=== PATIENT | female | born 1950 | race Caucasian/White ===

== ENCOUNTER → 2017-11-04 | Outpatient (CLI) | payer BC, MEDICARE ==
--- NOTE | 2017-11-05 09:42 | MM ---
Reason for exam: screening (asymptomatic). Last mammogram was performed 1 year and 1 month ago. History: Patient is postmenopausal and has history of other cancer at age 44. Family history of breast cancer in mother at age 74. Physical Findings: A clinical breast exam by your physician is recommended on an annual basis and results should be correlated with mammographic findings. MG 3D Screening Mammo W/Cad Bilateral CC and MLO view(s) were taken. Prior study comparison: October 08, 2016, bilateral MG 3d screening mammo w/cad. July 25, 2015, bilateral MG screening mammo w CAD. The breast tissue is heterogeneously dense. This may lower the sensitivity of mammography. Finding: There are round, regional, fine calcifications in the lower inner quadrant, middle position of the left breast 4cm from the nipple in a region of increased density. New finding since October 08, 2016 and July 25, 2015. ASSESSMENT: Incomplete: need additional imaging evaluation, BI-RAD 0 RECOMMENDATION: Special view mammogram of the left breast. [facility] will attempt to contact patient to return for supplemental views.
== END | disposition home or self-care (01) ==
LOC: RADMAMWWP 14:28
PROVIDERS: ATTEND Obstetrics & Gynecology
DX: Z12.31 Encounter for screening mammogram for malignant neoplasm of breast (principal)
CPT/HCPCS: 77063; 77067

== ENCOUNTER → 2017-11-06 | Outpatient (CLI) | payer MEDICARE ==
--- NOTE | 2017-11-06 09:50 | MM ---
Reason for exam: additional evaluation requested from abnormal screening. Last mammogram was performed less than 1 month ago. History: Patient is postmenopausal and has history of other cancer at age 44. Family history of breast cancer in mother at age 74. Took progesterone for 2 years beginning at age 44. Physical Findings: Nurse did not find any significant physical abnormalities on exam. MG 3D Work Up W/Cad LT CC with magnification, MLO with magnification, and LM view(s) were taken of the left breast. Prior study comparison: November 04, 2017, bilateral MG 3d screening mammo w/cad. October 08, 2016, bilateral MG 3d screening mammo w/cad. Finding: There are new intermediate concern, suspicious heterogeneous grouped/clustered calcifications in the lower inner quadrant, anterior position of the left breast, 4cm from the nipple. New finding since October 08, 2016. These results were verbally communicated with the patient and result sheet given to the patient on 11/06/17. ASSESSMENT: Suspicious, BI-RAD 4 RECOMMENDATION: Surgical consultation and stereotactic core biopsy of the left breast. Called Dr. Casiano with mammographic findings and has scheduled an appointment for the patient for 11/24/17 at 9:[address] Georges. Biopsy scheduled for 11/18/17 at 8:00. PRELIMINARY REPORT CALLED AND FAXED TO DR. GEORGES ON 11/06/17.
== END | disposition home or self-care (01) ==
LOC: RADMAMWWP 08:17
PROVIDERS: ATTEND Obstetrics & Gynecology
DX: R92.8 Other abnormal and inconclusive findings on diagnostic imaging of breast (principal)
CPT/HCPCS: 77065; G0279

== ENCOUNTER → 2017-11-18 | Day surgery (SDC) | payer MEDICARE ==
[2017-11-18 07:23] VITALS: RESP 16; BMI 23.8
[2017-11-18 08:49] VITALS: BP 140/66; PULSE 76; TEMP 97.8
--- NOTE | 2017-11-18 09:59 | MM ---
Stereotactic Mammotome core biopsy left breast. HISTORY: Micro calcifications left breast The microcalcifications in question within the left breast were targeted by the undersigned. Procedure was performed by the undersigned. Informed consent was obtained and all of the patients questions were answered. The standard sterile technique was utilized and appropriate local anesthesia was obtained with 1% lidocaine. Mammotome probe was advanced and multiple core samples were obtained and sent to pathology for interpretation. Microclip marker was deployed at the site of biopsy. Post procedural mammogram demonstrates appropriate deployment of radiopaque clip marker. The patient tolerated the procedure well and left the department in stable condition. Pathology results are pending. IMPRESSION: Successful stereotactic core biopsy left breast with pathology results pending. Pathology Results: High Risk BREAST, LEFT, SITE A, STEREOTACTIC CORE BIOPSY: SMALL INTRADUCTAL PAPILLOMA. FIBROCYSTIC CHANGE (STROMAL FIBROSIS, CYST FORMATION, APOCRINE METAPLASIA, ADENOSIS AND DUCT HYPERPLASIA). CALCIFICATIONS IDENTIFIED, PENDING ADDITIONAL SECTIONS. ADDENDUM REPORT BREAST, LEFT, SITE A, STEREOTACTIC CORE BIOPSY: ATYPICAL DUCTAL HYPERPALSIA. INTRADUCTAL PAPILLOMA. FIBROCYSTIC CHANGE (STROMAL FIBROSIS, CYST FORMATION, APOCRINE METAPLASIA, ADENOSIS AND DUCT HYPERPLASIA). CALCIFICATIONS IDENTIFIED. Recommendation Surgical consult of the left breast. RAFAL
== END ==
LOC: RADMAMWWP 07:04
PROVIDERS: ATTEND Surgery
DX: D24.2 Benign neoplasm of left breast (principal); N60.32 Fibrosclerosis of left breast; N60.02 Solitary cyst of left breast; N60.82 Other benign mammary dysplasias of left breast; N60.22 Fibroadenosis of left breast; R92.1 Mammographic calcification found on diagnostic imaging of breast; N60.92 Unspecified benign mammary dysplasia of left breast
CPT/HCPCS: 88305; 19081; A4648; J2001

== ENCOUNTER 2018-01-27 07:15 | Day surgery (SDC) | payer MEDICARE ==
[2018-01-22 12:27] VITALS: BMI 23.8
[~2018-01-27 07:15] MED LIST: ALPRAZolam 0.25 MG TAB PO STA; DEXAMETHASONE SOD PHOSPHATE 10 MG/ML 1 ML VIAL IV ONE; HEPARIN SODIUM,PORCINE 5,000 UNIT/ML 1 ML VIAL SQ ONE; LACTATED RINGERS 1,000 ML IV SCH; LIDOCAINE 1% 20 ML VIAL (10MG/ML) FOR IV START INTRADERMA PRN; MIDAZOLAM 2 MG/2 ML VIAL IV PRN; MORPHINE SULFATE 2 MG/ML SYRINGE IV PRN; ONDANSETRON 4 MG/2 ML VIAL IVP ONE; Pre Op ABX Message 1 EACH MISC MISCELLANE ONE; SCOPOLAMINE 1.5MG/72HR PATCH TRANSDERM ONE
[2018-01-27 07:48] LABS: Glucose,Whole Blood 159 mg/dL (75-99)
[2018-01-27] MEDS ORDERED: SODIUM BICARB 4% 5 ML VIAL (0.48 MEQ/ML) MISCELLANE ONE (08:49)
[2018-01-27] MEDS ORDERED: LIDOCAINE 1% INJ 10MG/ML (20 ML MDV) SQ ONE (08:49)
[2018-01-27] MEDS ORDERED: HEPARIN SODIUM,PORCINE 5,000 UNIT/ML 1 ML VIAL SQ ONE (09:52)
[2018-01-27] MEDS ORDERED: DEXAMETHASONE SOD PHOS (MDV) 100 MG/10 ML VIAL ONE (09:57)
[2018-01-27] MEDS ORDERED: MIDAZOLAM 2 MG/2 ML VIAL ONE (09:57)
[2018-01-27] MEDS ORDERED: LIDOCAINE 1% INJ 10MG/ML (20 ML MDV) ONE (09:57)
[2018-01-27] MEDS ORDERED: SUCCINYLCHOLINE CHLORIDE 100 MG/5 ML SYR IV ONE (09:57)
[2018-01-27] MEDS ORDERED: fentaNYL (PF) 50 MCG/ML 2 ML AMP ONE (09:57)
[2018-01-27] MEDS ORDERED: PROPOFOL 10 MG/ML 20 ML VIAL IV ONE (09:57)
[2018-01-27] MEDS ORDERED: LIDOCAINE 1% INJ 10MG/ML (10 ML MDV) SQ ONE ×3 (10:26→10:54)
[2018-01-27] MEDS ORDERED: LACTATED RINGERS 1,000 ML IV ONE (10:27)
--- NOTE | 2018-01-27 11:01 | P.OP ---
Date of Procedure: 01/27/18 Preoperative Diagnosis: Left breast biopsy with atypical hyperplasia, intraductal papilloma Postoperative Diagnosis: Same Procedure(s) Performed: Left breast needle localization diet biopsy, placement of titanium clips Anesthesia: JOCELINEA Surgeon: Leydi Humphrey Estimated Blood Loss (ml): 15 IV fluids (ml): 400 Pathology: other (Breast tissue) Condition: stable Disposition: PACU Indications for Procedure: Biopsy atypical hyperplasia and intraductal papilloma Operative Findings: Dense breast tissue Description of Procedure: Patient was taken to the operating room and following induction of anesthesia the left breast was prepped and draped in a sterile fashion. Circumareolar incision was made and carried down to the hook of the needle. Surrounding tissue was excised. Following this the specimen was painted for orientation and sent for radiographic evaluation. The clip was noted to be in the specimen. After we were assured that hemostasis was attained the deep tissues were closed using a 3-0 Vicryl suture. Titanium clips were placed to suraj the area of the biopsy cavity. The skin was then closed using a 4-0 Monocryl. The patient tolerated the procedure in stable condition. Specimen was sent to pathology.
--- NOTE | 2018-01-27 11:02 | P.DS ---
Providers Attending physician: Leydi Humphrey Primary care physician: Stated None Plan - Discharge Summary New Discharge Prescriptions: No Action Multivitamin/Iron/Folic Acid [Centrum Complete Multivit Tab] 1 each PO DAILY Fish Oil/Dha/Epa [Fish Oil 1,200 mg Fish Oil] 600 mg PO DAILY Calcium Carbonate/Vitamin D3 [Calcium 600 + Vit D Tablet] 1 each PO DAILY metFORMIN HCL [Glucophage] 500 mg PO BID Metoprolol Succinate [Toprol XL] 25 mg PO BID Levothyroxine Sodium [Synthroid] 25 mcg PO DAILY Fenofibrate Nanocrystallized [Tricor] 145 mg PO DAILY Aspirin 81 mg PO DAILY Vits A,C,E/Lutein/Minerals [Ocuvite with Lutein Tablet] 1 each PO DAILY Lisinopril [Zestril] 2.5 mg PO DAILY Discharge Medication List Aspirin 81 mg PO DAILY 08/01/14 [History] Calcium Carbonate/Vitamin D3 [Calcium 600 + Vit D Tablet] 1 each PO DAILY [History] Fenofibrate Nanocrystallized [Tricor] 145 mg PO DAILY 08/01/14 [History] Fish Oil/Dha/Epa [Fish Oil 1,200 mg Fish Oil] 600 mg PO DAILY 08/01/14 [History] Levothyroxine Sodium [Synthroid] 25 mcg PO DAILY 08/01/14 [History] Metoprolol Succinate [Toprol XL] 25 mg PO BID 08/01/14 [History] Multivitamin/Iron/Folic Acid [Centrum Complete Multivit Tab] 1 each PO DAILY [History] Vits A,C,E/Lutein/Minerals [Ocuvite with Lutein Tablet] 1 each PO DAILY [History] metFORMIN HCL [Glucophage] 500 mg PO BID 08/01/14 [History] Lisinopril [Zestril] 2.5 mg PO DAILY 11/10/17 [History] Follow up Appointment(s)/Referral(s): Leydi Humphrey MD [STAFF PHYSICIAN] - 1 Week Activity/Diet/Wound Care/Special Instructions: Drive today Surgical bra at all times Patient may shower after 48 hours Discharge Disposition: HOME SELF-CARE
[2018-01-27 11:20] VITALS: TEMP 97
[2018-01-27 12:36] LABS: Glucose,Whole Blood 154 mg/dL (75-99)
[2018-01-27 13:22] VITALS: RESP 16
[2018-01-27 13:23] VITALS: BP 154/79; PULSE 75
--- NOTE | 2018-01-27 15:21 | MM ---
EXAMINATION TYPE: MG pre op needle loc LT, MG surgical specimen LT DATE OF EXAM: 01/27/2018 COMPARISON: Mammogram 11/18/2017 CLINICAL HISTORY: Papilloma, abnormal mammogram TECHNIQUE: Needle localization with wire placement and surgical excision of area of concern in the left breast. FINDINGS: The procedure of needle localization with wire placement and than surgical excision was explained to the patient. Benefits, alternatives, and risks were discussed. An informed consent was then obtained. The shortest pathway for procedure was chosen. Shortest pathway was mediolateral approach. The overlying skin was prepped and draped in usual sterile fashion. Lidocaine buffered with bicarbonate was used as anesthetic into the skin and subcutaneous tissue up to the level of area of concern. A 5 cm needle was used. It was placed via a mediolateral approach under mammographic guidance. Subsequent 90 degrees mammogram show the needle to be in satisfactory position relative to the targeted area. At this point, wire was placed and the needle was withdrawn. The wire was fixed to patient's skin. Images were marked for surgeon. The patient tolerated the procedure well without any immediate complication. The patient was kept in the radiology department for short stay after the procedure and then taken to surgery for surgical excision. Targeted clip and wire are identified in specimen mammogram. The patient was kept in hospital for short stay after the procedure and then discharged home in stable condition. IMPRESSION: Successful, uncomplicated needle localization with wire placement and surgical excision of marker in the left breast, full pathology results to follow. 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 CANCER EXTENDS TO WITHIN 1 MM OF THE INKED ANTERIOR AND INFERIOR MARGINS ( CLOSEST TO BLUE ANTERIOR INK) BUT DOES NOT CONTACT MARGIN. ADJACENT BREAST TISSUE: PRIOR BIOPSY CHANGES WITH AREAS OF DCIS. Recommendation Surgical consult of the left breast. RAFAL
== END 2018-01-27 13:39 | disposition home or self-care (01) ==
LOC: OR 07:15
PROVIDERS: ATTEND Surgery
DX: D05.12 Intraductal carcinoma in situ of left breast (principal); D24.2 Benign neoplasm of left breast; N60.92 Unspecified benign mammary dysplasia of left breast; Z80.3 Family history of malignant neoplasm of breast; I10 Essential (primary) hypertension; M19.90 Unspecified osteoarthritis, unspecified site; E78.5 Hyperlipidemia, unspecified; E07.9 Disorder of thyroid, unspecified; K21.9 Gastro-esophageal reflux disease without esophagitis; Z79.84 Long term (current) use of oral hypoglycemic drugs; Z79.82 Long term (current) use of aspirin; Z79.899 Other long term (current) drug therapy
CPT/HCPCS: 88307; 76098; 19281; 19301; J2250; J1644; J1100 ×2; J2405; J2001 ×2; J3010; J0330; J2704

== ENCOUNTER 2018-03-10 07:36 | Day surgery (SDC) | payer MEDICARE ==
[2018-03-04 15:43] VITALS: BMI 23.8
[~2018-03-10 07:36] MED LIST changes: -ALPRAZolam 0.25 MG TAB PO STA; -LIDOCAINE 1% 20 ML VIAL (10MG/ML) FOR IV START INTRADERMA PRN; -MORPHINE SULFATE 2 MG/ML SYRINGE IV PRN; -ONDANSETRON 4 MG/2 ML VIAL IVP ONE; +ONDANSETRON ODT 4 MG TAB PO ONE; -SCOPOLAMINE 1.5MG/72HR PATCH TRANSDERM ONE; +fentaNYL (PF) 50 MCG/ML 2 ML AMP IV PRN
[2018-03-10 08:26] LABS: Glucose,Whole Blood 145 mg/dL (75-99)
[2018-03-10] MEDS ORDERED: LACTATED RINGERS 1,000 ML IV ONE ×2 (08:26→14:19)
[2018-03-10] MEDS ORDERED: ALPRAZolam 0.5 MG TAB PO ONE (08:27)
[2018-03-10] MEDS ORDERED: ONDANSETRON 4 MG/2 ML VIAL IVP ONE ×2 (08:27→13:46)
--- NOTE | 2018-03-10 10:59 | NM ---
EXAMINATION TYPE: NM sentinel node injection DATE OF EXAM: 03/10/2018 COMPARISON: NONE HISTORY: Left breast carcinoma TECHNIQUE AND FINDINGS: The procedure of sentinel lymph node injection was explained to the patient. The benefits, alternatives, and risks were discussed. An informed consent was then obtained. Overlying skin is cleaned with sterile alcohol. Following this, 579 uCi [id number] Tilmanocept was inject ed into the left periareolar upper outer quadrant. The patient tolerated the procedure well without any immediate complication. The patient was kept in the radiology department for short stay after the procedure and then taken to surgery for surgical p rocedure what is presumed intraoperative gamma probe will be used for sentinel lymph node detection. IMPRESSION: Left breast radiotracer injection for sentinel node localization as above.
[2018-03-10] MEDS ORDERED: HEPARIN SODIUM,PORCINE 5,000 UNIT/ML 1 ML VIAL SQ ONE (11:30)
[2018-03-10] MEDS ORDERED: MIDAZOLAM 2 MG/2 ML VIAL ONE (11:57)
[2018-03-10] MEDS ORDERED: LIDOCAINE 1% INJ 10MG/ML (20 ML MDV) ONE (11:57)
[2018-03-10] MEDS ORDERED: fentaNYL (PF) 50 MCG/ML 2 ML AMP ONE (11:57)
[2018-03-10] MEDS ORDERED: SUCCINYLCHOLINE CHLORIDE VIAL 200 MG/10 ML VIAL IV ONE (11:57)
[2018-03-10] MEDS ORDERED: DEXAMETHASONE SOD PHOS (MDV) 100 MG/10 ML VIAL ONE (11:57)
[2018-03-10] MEDS ORDERED: PROPOFOL 10 MG/ML 20 ML VIAL IV ONE (11:57)
[2018-03-10] MEDS ORDERED: PHENYLEPHRINE-0.9% NACL SYG 1 MG/10 ML SYRINGE ONE (11:57)
[2018-03-10] MEDS ORDERED: METHYLENE BLUE 10 MG/ML (10 ML VIAL) INJ ONE (12:15)
[2018-03-10] MEDS ORDERED: LIDOCAINE 1% INJ 10MG/ML (20 ML MDV) SQ ONE ×2 (12:25)
--- NOTE | 2018-03-10 13:21 | P.OP ---
Date of Procedure: 03/10/18 Preoperative Diagnosis: Left breast cancer patient for sentinel node biopsy Postoperative Diagnosis: Same Procedure(s) Performed: [place] node mapping, sentinel node biopsy Anesthesia: JOCELINEA Surgeon: Leydi Humphrey Estimated Blood Loss (ml): 2 IV fluids (ml): 800 Pathology: other ([place] nodes 4) Condition: stable Disposition: PACU Indications for Procedure: Left breast invasive cancer patient for sentinel node biopsy Operative Findings: 4 sentinel nodes identified and removed frozen section negative for cancer. Description of Procedure: Patient is a 67-year-old white female who underwent a biopsy of the left breast which was positive for invasive ductal carcinoma. Margins were felt to be sufficient and the patient was recommended to undergo sentinel node biopsy. Patient was taken to the operating room and following induction of general anesthesia the left axilla was prepped and draped in a sterile fashion. The neoprobe was used to identify the area of greatest activity in the axilla and an incision was made just under the hair bearing area of the axilla. This was carried through the skin and subcutaneous tissue. Dissection was carried down into the axillary contents were first sentinel node was identified. This was excised and the 10 second count was 21,217. Further interrogation of the axilla revealed 2 additional sentinel nodes. Dissection was carried into the axillary tissue the nerve along the latissimus dorsi was identified and carefully preserved. The second sentinel node was removed with a count of 1508 , the third node was removed with a count of 11,019, and the fourth node was removed with a count of 15,839. All of this was soft and appeared to be fatty in nature. Frozen section evaluation revealed that there was no dense of cancer nodes. The patient has a history of lymphoma and a portion of this tissue was sent for flow cytometry. Background count of 10 seconds was 48. Following this after assured that hemostasis was attained the wound was well irrigated. The deep tissues were closed using a 3-0 Vicryl suture. This was done following placement of a ERIKA drain. The ERIKA drain was secured with a nylon suture. The skin was secured with a 4-0 Monocryl. Patient tolerated procedure in stable condition. All instrument and sponge counts were correct at the end of the case.
--- NOTE | 2018-03-10 13:23 | P.DS ---
Providers Attending physician: Leydi Humphrey Primary care physician: Darrell Cain Plan - Discharge Summary New Discharge Prescriptions: No Action Multivitamin/Iron/Folic Acid [Centrum Complete Multivit Tab] 1 each PO DAILY Fish Oil/Dha/Epa [Fish Oil 1,200 mg Fish Oil] 600 mg PO DAILY Calcium Carbonate/Vitamin D3 [Calcium 600 + Vit D Tablet] 1 each PO DAILY metFORMIN HCL [Glucophage] 500 mg PO BID Metoprolol Succinate [Toprol XL] 25 mg PO BID Levothyroxine Sodium [Synthroid] 25 mcg PO DAILY Fenofibrate Nanocrystallized [Tricor] 145 mg PO DAILY Aspirin 81 mg PO DAILY Vits A,C,E/Lutein/Minerals [Ocuvite with Lutein Tablet] 1 each PO DAILY Lisinopril [Zestril] 2.5 mg PO DAILY Discharge Medication List Aspirin 81 mg PO DAILY 08/01/14 [History] Calcium Carbonate/Vitamin D3 [Calcium 600 + Vit D Tablet] 1 each PO DAILY [History] Fenofibrate Nanocrystallized [Tricor] 145 mg PO DAILY 08/01/14 [History] Fish Oil/Dha/Epa [Fish Oil 1,200 mg Fish Oil] 600 mg PO DAILY 08/01/14 [History] Levothyroxine Sodium [Synthroid] 25 mcg PO DAILY 08/01/14 [History] Metoprolol Succinate [Toprol XL] 25 mg PO BID 08/01/14 [History] Multivitamin/Iron/Folic Acid [Centrum Complete Multivit Tab] 1 each PO DAILY [History] Vits A,C,E/Lutein/Minerals [Ocuvite with Lutein Tablet] 1 each PO DAILY [History] metFORMIN HCL [Glucophage] 500 mg PO BID 08/01/14 [History] Lisinopril [Zestril] 2.5 mg PO DAILY 11/10/17 [History] Follow up Appointment(s)/Referral(s): Leydi Humphrey MD [STAFF PHYSICIAN] - 1 Week Activity/Diet/Wound Care/Special Instructions: Do not drive today Teaching drain care/ drainage and recorded contents twice a day and when necessary Patient may shower after 24 hours Discharge Disposition: HOME SELF-CARE
[2018-03-10 13:38] VITALS: TEMP 97.1
[2018-03-10] MEDS ORDERED: MORPHINE SULFATE 4 MG/ML SYRINGE IVP ONE ×2 (13:46→14:03)
[2018-03-10] MEDS ORDERED: LABETALOL 5 MG/ML VIAL MDV IVP ONE (14:06)
[2018-03-10 14:16] VITALS: RESP 18
[2018-03-10] MEDS ORDERED: HYDROcodone/APAP 7.5-325MG 1 EACH TAB PO ONE ×2 (15:00→15:01)
[2018-03-10 16:02] VITALS: BP 146/68; PULSE 89
== END 2018-03-10 16:36 | disposition home or self-care (01) ==
LOC: OR 07:36
PROVIDERS: ATTEND Surgery
DX: C50.912 Malignant neoplasm of unspecified site of left female breast (principal); E11.9 Type 2 diabetes mellitus without complications; I10 Essential (primary) hypertension; E78.5 Hyperlipidemia, unspecified; E07.9 Disorder of thyroid, unspecified; Z85.72 Personal history of non-Hodgkin lymphomas; Z79.890 Hormone replacement therapy; Z79.84 Long term (current) use of oral hypoglycemic drugs; Z79.82 Long term (current) use of aspirin; Z79.899 Other long term (current) drug therapy
CPT/HCPCS: 38792; 38525; A9520; J2250; J0330; J2270; J1644; J1100 ×2; J2405; J2001; Q9968; J3010; J2370; J2704; 88307; 88331; 88341; 88342

== ENCOUNTER → 2018-03-19 | Outpatient (CLI) | payer MEDICARE ==
[2018-03-19 11:22] VITALS: BP 131/75; PULSE 65; TEMP 98.4; BMI 24.3
== END | disposition home or self-care (01) ==
LOC: WWCWWP 11:10
PROVIDERS: ATTEND Surgery
DX: Z48.89 Encounter for other specified surgical aftercare (principal); Z53.9 Procedure and treatment not carried out, unspecified reason

== ENCOUNTER → 2018-03-19 | Outpatient (CLI) | payer MEDICARE ==
--- NOTE | 2018-03-19 11:42 | P.PN ---
Progress Note - Text Progress Note Date: 03/19/18 Patient presents for a postoperative appointment she is status post left breast sentinel node biopsy. She had undergone left breast biopsy for atypical hyperplasia prior and was noted to have an invasive ductal carcinoma and DCIS. The sentinel nodes were negative for cancer. The patient's incision is clean and dry. The patient's ERIKA drain is minimal output and serous. The ERIKA drain was removed. Impression/plan: 1. history of left breast cancer 2. Patient following with radiation oncology 3. Patient following with medical oncology 4. Patient will follow here in 3-4 months CC: Chacha Enrique Johnson
== END | disposition home or self-care (01) ==
LOC: WWCWWP 11:13
PROVIDERS: ATTEND Surgery
DX: N60.92 Unspecified benign mammary dysplasia of left breast (principal); Z53.9 Procedure and treatment not carried out, unspecified reason

== ENCOUNTER → 2018-06-02 | Outpatient (CLI) | payer MEDICARE ==
[2018-06-02 08:55] VITALS: BP 153/68; PULSE 66; TEMP 97.6; BMI 24.1
--- NOTE | 2018-06-02 09:55 | P.HPOB ---
History of Present Illness H&P Date: 06/02/18 Chief Complaint: Bleeding from vulvar area times 2 weeks. This is a 67 year old G3 PIII with an LMP of 1993. The patient had a history of possible lichen sclerosis by previous physical exam. She was not having problems with this until about 2 weeks ago. After washing the area, she noticed a small amount of blood. Upon inspection she felt that there was some bleeding from the vulvar area. She does not believe it was from the vagina. She has not been sexually active for more than one year. She has had slight pruritus in the vulvar area. She denies any significant pain and did not feel a tearing sensation when she 1st noticed the bleeding. Review of Systems Weight has been stable. She denies respiratory, cardiac and G.I. problems. She denies maltreatment or problems with falling. : she denies any significant problems with urinary leakage. Past Medical History Past Medical History: Cancer (Left breast status post lumpectomy and radiation therapy 2017.), Diabetes Mellitus, Hyperlipidemia, Hypertension, Thyroid Disorder (Hypothyroid) Additional Past Medical History / Comment(s): hodgkins lymphoma 1993, had 7 months of chemo. 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 History of Any Multi-Drug Resistant Organisms: None Reported Past Surgical History: Breast Surgery (left Lumpectomy 2018), Cholecystectomy, Tonsillectomy Additional Past Surgical History / Comment(s): d & c, colonoscopy, LEFT breast Lumpectomy. Past Anesthesia/Blood Transfusion Reactions: Postoperative Nausea & Vomiting ( PONV) Additional Past Anesthesia/Blood Transfusion Reaction / Comment(s): States has a letter that states "difficult intubation". Past Psychological History: No Psychological Hx Reported Smoking Status: Never smoker Past Alcohol Use History: Rare (1 per month) Past Drug Use History: None Reported Additional History: She has been since 1967 and is retired. - Past Family History Mother Family Medical History: Cancer (Breast) Sister(s) Family Medical History: Cancer (Uterine) Additional Family Medical History / Comment(s): Down syndrome Medications and Allergies Home Medications Medication Instructions Recorded Confirmed Type Aspirin 81 mg PO DAILY 08/01/14 06/02/18 History Calcium Carbonate/Vitamin D3 1 each PO DAILY 08/01/14 06/02/18 History [Calcium 600 + Vit D Tablet] Fenofibrate Nanocrystallized 145 mg PO DAILY 08/01/14 03/19/18 History [Tricor] Fish Oil/Dha/Epa [Fish Oil 1,200 600 mg PO DAILY 08/01/14 06/02/18 History mg Fish Oil] Levothyroxine Sodium [Synthroid] 25 mcg PO DAILY 08/01/14 06/02/18 History Metoprolol Succinate [Toprol XL] 25 mg PO BID 08/01/14 06/02/18 History Multivitamin/Iron/Folic Acid 1 each PO DAILY 08/01/14 06/02/18 History [Centrum Complete Multivit Tab] Vits A,C,E/Lutein/Minerals 1 each PO DAILY 08/01/14 06/02/18 History [Ocuvite with Lutein Tablet] metFORMIN HCL [Glucophage] 500 mg PO BID 08/01/14 06/02/18 History Lisinopril [Zestril] 2.5 mg PO DAILY 11/10/17 06/02/18 History Cranberry Fruit Extract [Cranberry] 500 mg PO 03/19/18 History Letrozole [Femara] mg PO HS 06/02/18 History Allergies Allergy/AdvReac Type Severity Reaction Status Date / Time No Known Allergies Allergy Verified 03/04/18 15:39 Exam Vital Signs Temp Pulse BP 06/02/18 08:52 97.6 F 66 153/68 Intake and Output 06/01/18 06/02/18 06/02/18 22:59 06:59 14:59 Other: Weight 59.874 kg Height 5'2", BMI 24.1. This is a well-developed well-nourished white female who is alert and oriented times 3 in no acute distress. HEENT: Within normal limits.. CHEST AND LUNGS: Clear to auscultation. HEART: Regular rate and rhythm. BREASTS: deferred ABDOMEN: Soft, nontender, without palpable masses. PELVIC EXAM: external genitalia reveals moderate atrophy with Pallor involving the inner labia from the clitoris to the perineum. The perineum also has mild pallor in there is no significant pallor in the blair-anal region. There is a small amount of dried blood and ecchymosis at the posterior aspect of the labia minora on both sides. Each measures approximately 9 x 6 mm and are mirror images. There is no active bleeding. RECTAL EXAM: deferred IMPRESSION: 1. 67-year-old menopausal female with vulvar pallor, pruritus and small bleeding times 2 weeks. Probable genital atrophy with lichen sclerosis. And I suspect mild labial adhesions were pulled apart causing small bleeding. I think vulvar dysplasia or cancerous changes are unlikely. 2. Small postmenopausal genital bleeding. This most likely is from the atrophic vulva and is less likely uterine in nature. 3. Recent history of her sister having uterine cancer. PLAN: 1. It had long discussion regarding the findings. 2. The patient will be scheduled for vulvar biopsy. 3. Pelvic ultrasound will also be done to check the endometrial thickness. 4. Will follow-up with her oncology doctors for the breast cancer. She will also do her next mammogram when recommended by her oncology doctors. 5. She will return here in approximately 6 months for her annual exam.
== END | disposition home or self-care (01) ==
LOC: WWCWWP 08:30
PROVIDERS: ATTEND Obstetrics & Gynecology
DX: Z53.9 Procedure and treatment not carried out, unspecified reason (principal)

== ENCOUNTER → 2018-06-09 | Outpatient (CLI) | payer MEDICARE ==
--- NOTE | 2018-06-09 13:55 | P.PCN ---
Date of Procedure: 06/09/18 Preoperative Diagnosis: Vulvar pallor with bleeding Postoperative Diagnosis: Vulvar pallor with bleeding Procedure(s) Performed: Vulvar Biopsy Anesthesia: local Surgeon: Simeon Casiano Estimated Blood Loss (ml): 1 Pathology: other (Vulvar skin biopsy) Condition: stable Disposition: same day Indications for Procedure: This was a 67-year-old female who developed vulvar pruritus and small vulvar bleeding. She was found to have vulvar pallor and was scheduled for a vulvar biopsy. Operative Findings: The patient has some generalized inner vulvar pallor that is symmetric. There were 2 areas of subcutaneous hemorrhage at the posterior aspect of the introitus last week when she was examined. The right area of hemorrhage is fairly well-healed and the left area still has a small amount of subcutaneous hemorrhage oppressively 6 x 7 mm in size. There is a new area of subcutaneous hemorrhage on the inner aspect of the left labia consistent with a scratch with small subcutaneous hemorrhage. Description of Procedure: The procedure and possible risks and complications were discussed with the patient. The patient was placed in the lithotomy position. An area of pallor on the inner aspect of the right labia majora was chosen to biopsy. Betadine was used to prep the area. Approximately 1cc of Lidocaine 1% was used for local anesthesia. Following determination of adequate anesthesia, the area was biopsy with a 3 mm argelia punch biopsy instrument. A silver nitrate stick was used to stop small bleeding areas. The site was hemostatic. Antibiotic ointment and dressing were applied. The patient tolerated the procedure well. The EBL was 1 cc. There were no complications. The lesion was sent for pathologic examination. The patient was instructed to apply an antibiotic ointment, such as Neosporin, two times daily until healed. She was instructed to call if problems .
--- NOTE | 2018-06-09 15:48 | US ---
EXAMINATION TYPE: US pelvic complete DATE OF EXAM: 06/09/2018 COMPARISON: NONE CLINICAL HISTORY: N95.0 Metrorrhagia (post menopausal); one episode vaginal bleeding; in remission fo r Hodgkin's Lymphoma ?; TECHNIQUE: Transvaginal (TV) and Transabdominal (TA) . Transabdominal sonographic images of the pel vis were acquired. Transvaginal sonographic images were medically necessary to better assess the fol lowing anatomy: endometrium Date of LMP: age 44 EXAM MEASUREMENTS: Uterus: 6.8 x 5.9 x2.8 cm Endometrial Stripe: 4.8 mm and by fluid in upper endometrium Right Ovary: 1.6 x 1.2 x 1.3 cm Transvaginally Left Ovary: 1.5 x 1.4 x 1.1 cm Transvaginally 1. Uterus: Anteverted; Nabothian cyst in CX = 0.4 x 0.4 x 0.3cm; oval heterogeneous mass = 1.7 x 1.7 x 1.6cm seen in upper myometrium with central shadowing calcification (fibroid). 2. Endometrium: fluid area in upper endometrium = 1.1 x 1.8 x 0.3cm; thickness is wnl post menopausa l 3. Right Ovary: small follicles 4. Left Ovary: small follicles 5. Bilateral Adnexa: wnl 6. Posterior cul-de-sac: wnl Urinary bladder is sonolucent. The posterior wall is normal. IMPRESSION: 1. Fluid within the upper endometrium
--- NOTE | 2018-06-10 13:22 | P.PN ---
Progress Note - Text Progress Note Date: 06/10/18 OUTPATIENT FOLLOW-UP NOTE TEST(S)/RESULTS: pelvic ultrasound done on 06/09/2018 showed a normal endometrial thickness. Some fluid was noted in the upper endometrium. METHOD OF NOTIFICATION: the patient was notified by phone. PATIENT COMMENTS: the patient has not had any more bleeding after the one episode. DIAGNOSIS: small endometrial fluid in the upper cavity. DISCUSSION: the episode of bleeding was associated with vulvar findings consistent with vulvar bleeding. And because of this I feel that uterine bleeding is unlikely. PLAN: plan on repeating the pelvic ultrasound in 6 months to reevaluate the endometrial cavity. The vulvar biopsy pathology is still pending.
== END | disposition home or self-care (01) ==
LOC: RADUSWWP 10:09
PROVIDERS: ATTEND Obstetrics & Gynecology
DX: N85.8 Other specified noninflammatory disorders of uterus (principal); N90.89 Other specified noninflammatory disorders of vulva and perineum
CPT/HCPCS: 76830; 76856; 88305

== ENCOUNTER → 2018-06-25 | Outpatient (CLI) | payer MEDICARE ==
[2018-06-25 09:38] VITALS: BP 119/71; PULSE 65; RESP 12; TEMP 98.6; BMI 23.8
--- NOTE | 2018-06-25 10:20 | P.GSHP ---
History of Present Illness H&P Date: 06/25/18 Patient is a 67 year old white female status post biopsy in January of 2018. The pathology revealed an invasive carcinoma and she subsequently went back for sentinel node biopsy. The sentinel node biopsy was negative for any cancer in the lymph nodes. The patient was seen by radiation oncology and underwent 20 radiation treatments. The patient was seen by medical oncology and started on Femara. Patient without complaints at this time. The tumor was 1.3 cm, Grade 1, ER+, MS +, Her 2 - She has not had any mammograms since diagnosis. The patient has a history of Hodgkin's lymphoma diagnosed in her 40s she is now in complete remission for with respect to this. She was treated by DR. Lane. Family History: 1. mother: breast at 75 2. sister: endometrial cancer, from this Hormonal History: menarche: 11 : 3, first at 19, breast fed: one menopause: 44, chemotherapy fro Hodgkins lymphoma Hormones: less marcelo one year BCP: none Past Surgical History: 1. tonsil 2. breast lumpectomy and SNB 3. D&C 4. node biopsy for Hodgkins disease 5. gallbladder Medical History: 1. HTN 2. diabetes Social History; smoke: none alcohol: social drugs: none - Constitutional Constitutional: Denies chills, Denies fever - EENT Eyes: denies blurred vision, denies pain Ears: right: decreased hearing, deny: tinnitus Ears, nose, mouth and throat: Denies headache, Denies sore throat - Breasts Breasts: bilateral: as per HPI - Cardiovascular Cardiovascular: Reports high blood pressure - Respiratory Respiratory: Denies cough, Denies 7 - Gastrointestinal Gastrointestinal: Denies abdominal pain, Denies diarrhea, Denies nausea, Denies vomiting - Genitourinary (Female) Genitourinary: Denies dysuria, Denies hematuria - Menstruation Comment: Patient recently diagnosed with lichen sclerosus, she had some vulvar bleeding and underwent a biopsy, she also had an ultrasound which showed some fluid and is going to have repeat ultrasound of the uterus in 6 months She is being followed by Dr. Casiano Menstruation: Reports postmenopausal - Musculoskeletal Musculoskeletal: Denies myalgias - Integumentary Integumentary: Denies pruritus, Denies rash - Neurological Neurological: Denies numbness, Denies weakness - Psychiatric Psychiatric: Denies anxiety, Denies depression - Endocrine Comment: diabetes Endocrine: Denies fatigue, Denies weight change - Hematologic/Lymphatic Comment: baby aspirin - Allergic/Immunologic Comment: none Past Medical History Past Medical History: Cancer, Diabetes Mellitus, Hyperlipidemia, Hypertension, Thyroid Disorder Additional Past Medical History / Comment(s): hodgkins lymphoma 1993, had 7 months of chemo. Past SURGICAL ASSIST history: she has no history of STDs. History of Any Multi-Drug Resistant Organisms: None Reported Past Surgical History: Breast Surgery, Cholecystectomy, Tonsillectomy Additional Past Surgical History / Comment(s): d & c, colonoscopy, LEFT breast Lumpectomy. Past Anesthesia/Blood Transfusion Reactions: Postoperative Nausea & Vomiting ( PONV) Additional Past Anesthesia/Blood Transfusion Reaction / Comment(s): States has a letter that states "difficult intubation". Smoking Status: Never smoker - Past Family History Mother Family Medical History: Cancer Sister(s) Family Medical History: Cancer Additional Family Medical History / Comment(s): Down syndrome Medications and Allergies Home Medications Medication Instructions Recorded Confirmed Type Aspirin 81 mg PO QAM 08/01/14 06/25/18 History Calcium Carbonate/Vitamin D3 1 each PO QAM 08/01/14 06/25/18 History [Calcium 600 + Vit D Tablet] Fenofibrate Nanocrystallized 145 mg PO HS 08/01/14 06/25/18 History [Tricor] Fish Oil/Dha/Epa [Fish Oil 1,200 600 mg PO QAM 08/01/14 06/25/18 History mg Fish Oil] Levothyroxine Sodium [Synthroid] 25 mcg PO QAM 08/01/14 06/25/18 History Metoprolol Succinate [Toprol XL] 25 mg PO BID 08/01/14 06/25/18 History Multivitamin/Iron/Folic Acid 1 each PO DAILY 08/01/14 06/25/18 History [Centrum Complete Multivit Tab] Vits A,C,E/Lutein/Minerals 1 each PO HS 08/01/14 06/25/18 History [Ocuvite with Lutein Tablet] metFORMIN HCL [Glucophage] 500 mg PO BID 08/01/14 06/25/18 History Lisinopril [Zestril] 2.5 mg PO HS 11/10/17 06/25/18 History Cranberry Fruit Extract [Cranberry] 500 mg PO QAM 03/19/18 06/25/18 History Letrozole [Femara] 25 mg PO HS 06/02/18 06/25/18 History Triamcinolone 0.1% Cream [Kenalog 1 applicatio TOPICAL BID PRN #30 06/16/18 Rx 0.1% Cream] tube Allergies Allergy/AdvReac Type Severity Reaction Status Date / Time No Known Allergies Allergy Verified 06/25/18 09:26 Surgical - Exam Vital Signs Temp Pulse Resp BP Pulse Ox 98.6 F 65 12 119/71 99 06/25/18 09:34 06/25/18 09:34 06/25/18 09:34 06/25/18 09:34 06/25/18 09:34 - General well developed, well nourished, no distress - Eyes normal ocular movement, no icteric - ENT no hearing loss, no congestion - Neck no masses, trachea midline - Respiratory normal respiratory effort, clear to auscultation - Cardiovascular Rhythm: regular Heart Sounds: normal: S1, S2 - Abdomen Abdomen: soft, non tender, no guarding, no rigid, no rebound - Neurologic no disoriented, no combative - Musculoskeletal normal gait, normal posture - Psychiatric oriented to time, oriented to person, oriented to place, speech is normal, memory intact Breast examination: Right breast: Multiple positional exam no dominant masses or nodules of concern Right axilla: No adenopathy of concern Left breast: Multi-positional exam no dominant masses or nodules of concern, well-healed scar from prior lumpectomy and radiation changes Left axilla: No adenopathy of concern No supraclavicular cervical or axillary adenopathy of concern Assessment and Plan Assessment: Impression/plan: 1. Patient status post left breast lumpectomy, T1N0M0 lesion, status post radiation therapy and presently on Femara 2. Prior history of lymphoma Hodgkin's no evidence of recurrent disease 3. Hypertension Plan: 1. Patient to follow up in 3 months time for breast surveillance 2. Medical management of medical problems CC: Dr. Enrique
== END | disposition home or self-care (01) ==
LOC: WWCWWP 09:11
PROVIDERS: ATTEND Surgery
DX: Z53.9 Procedure and treatment not carried out, unspecified reason (principal)

== ENCOUNTER → 2018-09-11 | Outpatient (CLI) | payer MEDICARE ==
[2018-09-11 11:10] VITALS: BP 145/78; PULSE 65; RESP 18; TEMP 98.3; BMI 23.8
--- NOTE | 2018-09-11 11:27 | P.PN ---
Subjective Progress Note Date: 09/11/18 Principal diagnosis: Left breast cancer The patient is a 68-year-old white female who is status post left breast lumpectomy and sentinel node biopsy in January 2018. The tumor was a 1.3 cm, grade 1, ER/RI positive, HER-2 negative cancer. She underwent lumpectomy sentinel node biopsy which was negative for cancer. She was seen by radiation oncology and underwent 20 radiation treatments. She was seen by medical oncology and started on femora, no chemotherapy. The patient does have a prior history of Hodgkin's lymphoma diagnosed in her 40s. She was treated for this by Dr. Lane. The patient has no complaints related to her breasts. No lumps or masses in her breast. ROS: HEENT: negative lungs: none heart: none GI:none : none Musculoskeletal: Arthritis in her hands Objective - Vital Signs Vital signs: Vital Signs Temp 98.3 F 09/11/18 11:06 Pulse 65 09/11/18 11:06 Resp 18 09/11/18 11:06 BP 145/78 09/11/18 11:06 Pulse Ox 99 09/11/18 11:06 Intake & Output 09/10/18 09/11/18 09/11/18 18:59 06:59 18:59 Weight 58.967 kg - Exam BMI 23.8 - Constitutional General appearance: Present: average body habitus - EENT Eyes: Present: EOMI ENT: Present: hearing grossly normal - Neck Neck: Present: normal ROM - Respiratory Respiratory: bilateral: CTA - Cardiovascular Rhythm: regular Heart sounds: normal: S1, S2 - Gastrointestinal General gastrointestinal: Present: soft - Musculoskeletal Musculoskeletal: Present: gait normal - Psychiatric Psychiatric: Present: A&O x's 3, appropriate affect, intact judgment & insight - Additional findings Additional findings: Breast exam: right breast: Multi-positional exam no dominant masses or nodules of concern Right axilla: No adenopathy of concern Left breast: Skin changes related to radiation and scar related to prior lumpectomy, multiple positional exam no dominant masses or nodules of concern Left axilla: No adenopathy of concern Assessment and Plan Assessment: Impression: 1. Status post left breast lumpectomy and sentinel node biopsy no evidence of recurrent disease 2. Prior history of Hodgkin's disease at the age of 44/no evidence of disease at this time 3. Hypertension 4. Diabetes 5. Mild arthritis Plan: 1. Continued Femara 2. Continue follow-up with medical and radiation oncology 3. Follow-up here in 4 months time 4. Medical management of medical problems CC: Dr. Darrell Cain
== END ==
LOC: WWCWWP 10:42
PROVIDERS: ATTEND Surgery
DX: Z53.9 Procedure and treatment not carried out, unspecified reason (principal)

== ENCOUNTER → 2018-09-21 | Outpatient (CLI) | payer MEDICARE ==
--- NOTE | 2018-09-21 10:21 | MM ---
Reason for exam: additional evaluation requested from prior study. Last mammogram was performed 10 months ago. History: Patient is postmenopausal, has history of breast cancer at age 67, has history of high-risk lesion on a previous biopsy at age 67, and has history of other cancer at age 44. Family history of breast cancer in mother at age 74. Radiation therapy, April 2018. Malignant MG pre op needle loc LT of the left breast, January 27, 2018. Lumpectomy of the left breast, January 27, 2018. High risk MG stereo VAD BX LT of the left breast, November 18, 2017. Took progesterone for 2 years beginning at age 44. Taking antineoplastic beginning at age 67. Physical Findings: Nurse did not find any significant physical abnormalities on exam. MG 3D Diag Mammo W/Cad [facility] Bilateral CC and MLO view(s) were taken. Prior study comparison: November 06, 2017, left breast MG 3d work up w/cad LT. November 04, 2017, bilateral MG 3d screening mammo w/cad. The breast tissue is heterogeneously dense. This may lower the sensitivity of mammography. Post surgical and post therapy changes on the left. Otherwise, no discrete abnormality. 6 month follow up recommended to assess the evolving therapy changes. These results were verbally communicated with the patient and result sheet given to the patient on 09/21/18. ASSESSMENT: Probably benign, BI-RAD 3 RECOMMENDATION: Follow-up diagnostic mammogram of the left breast in 6 months.
== END | disposition home or self-care (01) ==
LOC: RADMAMWWP 09:26
PROVIDERS: ATTEND Radiology Radiation Oncology
DX: Z08 Encounter for follow-up examination after completed treatment for malignant neoplasm (principal); Z85.3 Personal history of malignant neoplasm of breast; Z92.3 Personal history of irradiation; Z17.0 Estrogen receptor positive status [ER+]
CPT/HCPCS: 77066; G0279; 77062

== ENCOUNTER → 2018-09-22 | Outpatient (CLI) | payer MEDICARE ==
[2018-09-22 16:12] VITALS: BP 127/76; PULSE 69; TEMP 98.1; BMI 23.3
--- NOTE | 2018-09-22 17:10 | P.PN ---
Progress Note - Text Progress Note Date: 09/22/18 Chief Complaint: small watery vaginal bleeding last week. HPI: This is a 68-year-old with LMP of 1993. The patient had a small amount of blood in the vaginal area last June. It was initially thought that this was from her vulvar lichen sclerosis. A pelvic ultrasound was turned to evaluate the endometrial thickness. The ultrasound on 06/09/2018 showed a thin endometrium with a small amount of fluid in the superior aspect of the endometrial cavity. The plan was to repeat the pelvic ultrasound in 6 months. Last week she noticed some slightly watery bloody fluid and she could not be sure if this was from the vulva or from up inside of the vagina. This only lasted a short time. She is no longer noticing any bloody fluid. She is concerned because her sister from endometrial cancer and also had symptoms of watery blood from the vagina. [place] trip [place]. She was planning on leaving [place] on 10/05/2018. Past medical history: type II diabetes, chronic hypertension, hypothyroidism and history of Hodgkin's lymphoma many years ago. Left Breast cancer diagnosed earlier this year and just status post left lumpectomy followed by radiation therapy and is now taking Femara. PE: Blood pressure: 128/76, Height: feet 2 inches, Weight: 128 pounds, Temperature: 98.1, Pulse: 29. This is a well developed, well nourished, white female who is alert and orientedx3, in no acute distress. Impression: 1. 68-year-old menopausal female with episode of postmenopausal bleeding. The bleeding possibly could have been from the endometrium, but it is possible that it could have come from a vulvar scratch in the area of her lichen sclerosis. Based on her description, I doubt that it is vulvar bleeding that she is describing. 2. History of small endometrial fluid by ultrasound done on 06/09/2018. Plan: 1. I have recommended endometrial biopsy. She will be scheduled for this on at 12 noon. We discussed the procedure and she was given a handout on endometrial biopsy and its preparation. 2. If her cervix is stenotic and I am unable to do the endometrial biopsy, consider repeating the pelvic ultrasound early. We will also consider referral for hysteroscopy and D&C if we are unable to get reassurance with the endometrial biopsy and/or pelvic ultrasound. Time spent with the patient: 25 minutes.
== END ==
LOC: WWCWWP 15:51
PROVIDERS: ATTEND Obstetrics & Gynecology
DX: Z53.9 Procedure and treatment not carried out, unspecified reason (principal)

== ENCOUNTER → 2019-03-19 | Outpatient (CLI) | payer MEDICARE ==
[2019-03-19 09:42] VITALS: BP 164/74; PULSE 65; RESP 16; TEMP 98; BMI 23.6
--- NOTE | 2019-03-19 10:11 | P.PN ---
Subjective Progress Note Date: 03/19/19 Principal diagnosis: Stage IA left breast cancer Kenia is a 68-year-old white female who is status post left breast lumpectomy and sentinel node biopsy in January 2018. The tumor was a T1 N0 M0 GI positive TX positive HER-2/danie negative grade 1 stage IA breast cancer. She underwent a lumpectomy sentinel node biopsy which was negative for cancer. She was seen by radiation oncology and underwent 20 radiation treatments. She was seen by medical oncology and started on Femara no chemotherapy. The patient does have a prior personal history of Hodgkin's lymphoma diagnosed in her 40s. She was treated for this by Dr. Lane. The patient has no complaints of pain or masses in her breasts. Of concern is the fact that the right breast is significantly larger than the left breast. This causes difficulty breathing with a broad, and I'll, also causes psychologic anxiety for the patient. The patient would like to have a mastopexy on the right such that breast was symmetric. Family history: 1.mother: breast cancer 2. sister: endometrial cancer Hormonal History menarche: 11 , first at 20, breast fed: yes menopause: chemotherapy at 44 for Hodgkin's lymphoma control pills:none hormones: tried for less than one year Past surgical history: 1. Cholecystectomy 2. Left breast lumpectomy and sentinel node biopsy 3. Cervical biopsy for Hodgkin's lymphoma 4. Port placement for chemotherapy for Hodgkin's lymphoma, subsequent removal of the port Past medical history: 1.HTN 2. arthritis ROS: HEENT: wears glasses Lungs: Heart: Hypertension GI: Negative : Kidney stone in the past Musculoskeletal: Arthritis Neurologic: Negative Endocrine: Negative Integument: Negative Psychiatric: Negative Patient with a history of Hodgkin's lymphoma in the past Social history: Smoke: Negative Alcohol: Negative Drugs: Negative Objective - Vital Signs Vital signs: Vital Signs Temp 98.0 F 03/19/19 09:36 Pulse 65 03/19/19 09:36 Resp 16 03/19/19 09:36 BP 164/74 03/19/19 09:36 Pulse Ox 100 03/19/19 09:36 Intake & Output 03/18/19 03/19/19 03/19/19 18:59 06:59 18:59 Weight 58.513 kg - Exam BMI 23.6 - Constitutional General appearance: Present: average body habitus - EENT Eyes: Present: EOMI ENT: Present: hearing grossly normal - Neck Neck: Present: normal ROM - Respiratory Respiratory: bilateral: CTA - Cardiovascular Rhythm: regular Heart sounds: normal: S1, S2 - Gastrointestinal Gastrointestinal Comment(s): no guarding or rebound General gastrointestinal: Present: soft - Integumentary Integumentary: Present: normal turgor - Musculoskeletal Musculoskeletal: Present: gait normal - Psychiatric Psychiatric: Present: A&O x's 3, appropriate affect, intact judgment & insight - Allied health notes Allied Health Notes Comment(s): Breast examination: Right breast: Multi-positional exam no dominant masses or nodules of concern, fibrocystic changes, right breast is larger than the left breast with increased ptosis over the left breast Right axilla: No adenopathy of concern Left breast: Multi-positional exam no dominant masses or nodules of concern, e vidence of a circumareolar incision is present which is well-healed the left breast is smaller than the right breast and has decreased ptosis Left axilla: No adenopathy of concern BRA 36C Assessment and Plan Assessment: Impression: 1. Status post left breast lumpectomy and sentinel node biopsy no evidence of recurrent disease, stage IA 2. Patient presently on Femara 3. Hypertension 4. Diabetes 5. Mild arthritis 6. Prior history of Hodgkin's disease Evidence of disease at this time 7. Patient with psychologic anxiety related to the asymmetry of the breast Plan: 1. Continue Femara 2. Continue follow-up with medical and radiation oncology 3. Consider consultation with plastic surgery related to breast asymmetry 4. Medical management of medical conditions Cc: Dr. Darrell Cain
== END | disposition home or self-care (01) ==
LOC: WWCWWP 09:32
PROVIDERS: ATTEND Surgery
DX: Z53.9 Procedure and treatment not carried out, unspecified reason (principal)

== ENCOUNTER → 2019-04-01 | Outpatient (CLI) | payer MEDICARE ==
--- NOTE | 2019-04-01 10:29 | XR ---
EXAMINATION TYPE: XR hand complete bilateral DATE OF EXAM: 04/01/2019 CLINICAL HISTORY: Chronic bilateral thumb pain TECHNIQUE: Frontal, lateral and oblique images of the bilateral hands were obtained. COMPARISON: None. FINDINGS: There is no acute fracture/dislocation evident in either hand. The joint spaces in both trejo nds appear within normal limits other than very minimal joint space narrowing of the first carpometac arpal joint bilaterally with very small marginal osteophytes. There is a punctate osseous fragment wi th donor site of the base of the distal third phalanx of the right hand (middle long finger). There i s no overlying soft tissue swelling and this is well corticated favoring chronic chip fracture. Small osseous cysts are seen of the lunate on the right, most commonly degenerative. No erosion of the uln ar styloid is seen bilaterally. No radiopaque foreign body of either hand. Osseous mineralization is within normal limits. The overlying soft tissue appears unremarkable. IMPRESSION: 1. No acute fracture or dislocation in either hand. 2. Mild arthropathy of the first carpal metacarpal joints bilaterally. 3. Punctate chronic appearing chip fracture of the base of the distal phalanx of the right third digi t.
== END | disposition home or self-care (01) ==
LOC: LABWHC1 09:45
PROVIDERS: ATTEND Family Medicine
DX: M18.0 Bilateral primary osteoarthritis of first carpometacarpal joints (principal); S62.632A Displaced fracture of distal phalanx of right middle finger, initial encounter for closed fracture

== ENCOUNTER → 2019-04-01 | Outpatient (CLI) | payer MEDICARE ==
--- NOTE | 2019-04-01 17:00 | BD ---
EXAMINATION TYPE: Axial Bone Density DATE OF EXAM: 04/01/2019 COMPARISON: 10.08.2016 CLINICAL HISTORY: 68 YR OLD FEMALE....ICD-10 CODE: C50.312 BR CANCER, Z79.890 POST MENOPAUSAL/HRT Height: 62 Weight: 129 FRAX RISK QUESTIONS: Rheumatoid Arthritis: YES RISK FACTORS HISTORY OF: Postmenopausal woman: AT AGE 44, CHEMO INDUCED MEDICATIONS: Thyroid Medications: YES, SYNTHROID, FOR ABOUT 10 YRS Additional Medications: FEMARA, CALCIUM WITH D, HX OF CHEMO AND RADIATION, BP MEDS, ORAL DIABETIC M EDS, STATIN FOR CHOLESTEROL Additional History: HX OF LT BREAST CANCER, LUMPECTOMY... DIABETIC , HYPERTENSION, CHOLESTEROL . EXAM MEASUREMENTS: Bone mineral densitometry was performed using the FlowJob System. Bone mineral density as measured about the Lumbar spine is: ----- L1-L4(G/cm2): 1.271 T Score Values are as follows: ----- L1: -0.2 ----- L2: 0.6 ----- L3: 1.7 ----- L4: 0.7 ----- L1-L4: 0.8 Bone mineral density has: Increased 1.2% since study of: 10.04.2016 Bone mineral density about the R hip (g/cm2): 1.114 Bone mineral density about the L hip (g/cm2): 1.133 T Score values are as follows: -----R Neck: 0.0 -----L Neck: 0.3 -----R Total: 0.8 -----L Total: 1.0 Bone mineral density has: Decreased -2.9% since study of: 10.04.2016 FRAX%s: THERE IS A 8.7% CHANCE FOR A MAJOR OSTEOPOROTIC FX AND A 0.5% FOR HIP.....PROBABILITY FOR F X IN 10 YRS TIME IMPRESSION: Normal (Values between +1 and -1 indicate normal bone mass). Consider repeating this study in 5 year s or sooner if there is some new clinical indication. NOTE: T-SCORE=SD OF THE YOUNG ADULT MEAN.
== END | disposition home or self-care (01) ==
LOC: RADBDWWP 09:14
PROVIDERS: ATTEND Internal Medicine Hematology & Oncology
DX: C50.312 Malignant neoplasm of lower-inner quadrant of left female breast (principal); N95.1 Menopausal and female climacteric states; Z79.890 Hormone replacement therapy
CPT/HCPCS: 77080

== ENCOUNTER → 2019-04-15 | Outpatient (CLI) | payer MEDICARE ==
--- NOTE | 2019-04-15 12:11 | MM ---
Reason for exam: follow-up at short interval from prior study. Last mammogram was performed 7 months ago. History: Patient is postmenopausal, has history of breast cancer at age 67, has history of high-risk lesion on a previous biopsy at age 67, and has history of other cancer at age 44. Family history of breast cancer in mother at age 74. Radiation therapy, April 2018. Malignant MG pre op needle loc LT of the left breast, January 27, 2018. Lumpectomy of the left breast, January 27, 2018. High risk MG stereo VAD BX LT of the left breast, November 18, 2017. Took progesterone for 2 years beginning at age 44. Taking antineoplastic beginning at age 67. Physical Findings: Nurse did not find any significant physical abnormalities on exam. MG 3D Diag Mammo W/Cad LT CC and MLO view(s) were taken of the left breast. Prior study comparison: September 21, 2018, bilateral MG 3d diag mammo w/cad [facility]. November 06, 2017, left breast MG 3d work up w/cad LT. The breast tissue is heterogeneously dense. This may lower the sensitivity of mammography. These results were verbally communicated with the patient and result sheet given to the patient on 04/15/19. ASSESSMENT: Incomplete: need additional imaging evaluation, BI-RAD 0 RECOMMENDATION: Ultrasound of the left breast.
--- NOTE | 2019-04-15 12:13 | USB ---
Reason for exam: additional evaluation requested from abnormal screening. History: Patient is postmenopausal, has history of breast cancer at age 67, has history of high-risk lesion on a previous biopsy at age 67, and has history of other cancer at age 44. Family history of breast cancer in mother at age 74. Radiation therapy, April 2018. Malignant MG pre op needle loc LT of the left breast, January 27, 2018. Lumpectomy of the left breast, January 27, 2018. High risk MG stereo VAD BX LT of the left breast, November 18, 2017. Took progesterone for 2 years beginning at age 44. Taking antineoplastic beginning at age 67. US Breast Limited LT Left limited breast ultrasound including focal area of concern, retroareolar and axilla demonstrates a 0.6 x 0.3 x 0.6cm mixed lesion at 11 o'clock. These results were verbally communicated with the patient and result sheet given to the patient on 04/15/19. ASSESSMENT: Suspicious, BI-RAD 4 RECOMMENDATION: Ultrasound core biopsy of the left breast. Called with mammographic findings and has scheduled an appointment for the patient for 05/14/19 at 8:[address] Humphrey. Biopsy scheduled for 05/03/19 at 8:00. PRELIMINARY REPORT CALLED AND FAXED TO DR. HUMPHREY ON 04/15/19.
== END | disposition home or self-care (01) ==
LOC: RADMAMWWP 08:20
PROVIDERS: ATTEND Surgery
DX: R92.8 Other abnormal and inconclusive findings on diagnostic imaging of breast (principal); Z85.3 Personal history of malignant neoplasm of breast
CPT/HCPCS: 77065; 76642; G0279; 77061

== ENCOUNTER → 2019-05-03 | Day surgery (SDC) | payer MEDICARE ==
[2019-05-03 07:16] VITALS: RESP 16; BMI 23.9
[2019-05-03 09:00] VITALS: BP 161/68; PULSE 62; TEMP 98.3
--- NOTE | 2019-05-03 11:08 | USB ---
EXAMINATION TYPE: US biopsy breast VAD LT, MG diagnostic mammo LT wo CAD DATE OF EXAM: 05/03/2019 CLINICAL HISTORY: R92.8 ABNORMAL NEEL. TECHNIQUE: Ultrasound guided core biopsy of left breast. COMPARISON: 04/15/2019 ultrasound of the left breast FINDINGS: The procedure of ultrasound guided core biopsy was explained to the patient. Benefits, alternatives, and risks were discussed. An informed consent was then obtained. Preprocedural timeout was performed The patient was placed in supine positioning for imaging and for the procedure. The overlying skin was prepped and draped in usual sterile fashion. 10 cc of 1% lidocaine without bicarbonate was used as anesthetic into the skin and subcutaneous tissue up to the 0.6 x 0.3 x 0.6 cm hypoechoic mass at the 11:00 position in the left breast. Under ultrasound guidance, a 12-gauge vacuum assisted biopsy gun device was used to obtain 13 core samples as no samples were seen during the initial biopsies due to a defective biopsy gun. A second device was utilized with samples obtained. Following this, a ribbon-shaped biopsy marker was left in mass. Postprocedural mammogram demonstrates appropriate biopsy marker placement. The patient tolerated the procedure well without any immediate complication. The patient was kept in the radiology department for short stay after the procedure and then discharged home in stable condition. IMPRESSION: Successful, uncomplicated ultrasound guided core biopsy of area of a 0.6 x 0.3 x 0.6 cm hypoechoic mass at the 11:00 position in the left breast in this patient with a history of left breast cancer. Full pathology results to follow. Pathology Results: Benign A. LEFT BREAST, 11:00, ULTRASOUND GUIDED CORE BIOPSY: Scanty fragments of benign fibroadipose tissue, non-diagnostic of a mass lesion. Breast elements are not identified. Limited sample, see note. B. LEFT BREAST, 11:00, ULTRASOUND GUIDED CORE BIOPSY: Fragments of benign fibroadipose tissue and a scanty stromal fragment with features of fibroadenoma/fibroadenomatoid hyperplasia. Limited sample, see note. Recommendation Follow up mammogram of the left breast in 6 months. RAFAL
== END ==
LOC: RADUSWWP 06:59
PROVIDERS: ATTEND Surgery
DX: R92.8 Other abnormal and inconclusive findings on diagnostic imaging of breast (principal); Z85.3 Personal history of malignant neoplasm of breast; Z90.12 Acquired absence of left breast and nipple; Z92.3 Personal history of irradiation
CPT/HCPCS: 19083; 77065; 88305; A4648; J2001

== ENCOUNTER → 2019-05-14 | Outpatient (CLI) | payer MEDICARE ==
[2019-05-14 08:29] VITALS: BP 169/81; PULSE 63; RESP 16; TEMP 98.3; BMI 23.9
--- NOTE | 2019-05-14 08:57 | P.PN ---
Subjective Progress Note Date: 05/14/19 Principal diagnosis: DCIS left breast Kenia is a 68-year-old white female status post left breast lumpectomy and sentinel node biopsy on 01/27/2018. The patient underwent radiation therapy and is presently on an aromatase inhibitor. [place] is doing [place] [address]. This was a left breast mammogram only. At that time radiographic evaluation revealed an area of concern ultrasound was done and ultrasound core biopsy was recommended. Ultrasound core biopsy was performed on 7118. Pathology revealed scanty tissue however it was felt that the area had been adequately sampled when the area was reviewed radiographically with the radiologist and the tissues revealed fibroadipose tissue with scanty stromal site fragment and features of fibroadenoma neuroma/fiber adenomatoid hyperplasia. It was not felt that further sampling was necessary at this time as per radiology. The patient has no complaints. Physical exam: Lungs: Clear Heart: Regular rate and rhythm Left breast: Incision clean and dry from prior lumpectomy, no evidence of any hematoma or infection related to core biopsy Objective - Vital Signs Vital signs: Vital Signs Temp 98.3 F 05/14/19 08:26 Pulse 63 05/14/19 08:26 Resp 16 05/14/19 08:26 BP 169/81 05/14/19 08:26 Pulse Ox 99 05/14/19 08:26 Intake & Output 05/13/19 05/14/19 05/14/19 18:59 06:59 18:59 Weight 59.421 kg - Exam BMI 24 - Constitutional General appearance: Present: average body habitus - EENT Eyes: Present: EOMI ENT: Present: hearing grossly normal - Neck Neck: Present: normal ROM - Respiratory Respiratory: bilateral: CTA - Cardiovascular Rhythm: regular Heart sounds: normal: S1, S2 - Integumentary Integumentary Comment(s): Incision left breast clean and dry No evidence of infection or hematoma at the core biopsy site - Musculoskeletal Musculoskeletal: Present: gait normal - Psychiatric Psychiatric: Present: A&O x's 3, appropriate affect, intact judgment & insight Assessment and Plan Assessment: Impression: 1. 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 History of hypertension 4. History of diabetes 5. Family history of breast cancer mother is 75 6. Sr. history of endometrial cancer Plan: 1. Repeat left breast mammogram and ultrasound in 6 months time with physician exam at that time 2. Repeat bilateral mammogram at the year anniversary of her last mammogram which was September 21 3. Continue treatment with Dr. Burnham aromatase inhibitor 4. Continue to follow with radiation oncology Cc: Dr. Darrell Cain
--- NOTE | 2019-05-14 09:19 | P.PN ---
Subjective Progress Note Date: 05/14/19 Principal diagnosis: DCIS left breast Objective - Vital Signs Vital signs: Vital Signs Temp 98.3 F 05/14/19 08:26 Pulse 63 05/14/19 08:26 Resp 16 05/14/19 08:26 BP 169/81 05/14/19 08:26 Pulse Ox 99 05/14/19 08:26 Intake & Output 05/13/19 05/14/19 05/14/19 18:59 06:59 18:59 Weight 59.421 kg
== END | disposition home or self-care (01) ==
LOC: WWCWWP 08:14
PROVIDERS: ATTEND Surgery
DX: Z53.9 Procedure and treatment not carried out, unspecified reason (principal)

== ENCOUNTER → 2019-08-04 | Outpatient (CLI) | payer MEDICARE ==
[2019-08-04 09:29] VITALS: BP 163/76; PULSE 62; RESP 16; TEMP 98.3; BMI 24.5
--- NOTE | 2019-08-04 10:24 | P.HPOB ---
History of Present Illness H&P Date: 08/04/19 Chief Complaint: The patient is here for her routine gynecologic exam. This is a 69-year-old with an LMP of 1993. The patient has a history of lichen sclerosus of the vulva confirmed with biopsy in 2018. The patient states she has had about 3 episodes during the past year with small amount of pinkish blood when she wiped. She believes it was from the irritated vulva. She has only had occasional irritation and most of the time is not bothered by the lichen sclerosus. She has used Kenalog cream infrequently when necessary. She previously had a pelvic ultrasound done last year on 06/09/2018 which showed a small amount of endometrial fluid. The plan was to have a follow-up ultrasound after 6 months, but she has not yet had this done. Review of Systems Weight has been stable. She denies respiratory, cardiac and G.I. problems. She denies maltreatment or problems with falling. : she denies any significant problems with urinary leakage. Past Medical History Past Medical History: Cancer, Diabetes Mellitus, Hyperlipidemia, Hypertension, Thyroid Disorder Additional Past Medical History / Comment(s): Type 2 diabetes, hypothyroidism, hodgkins lymphoma 1993, had 7 months of chemo. Left Breast cancer, lumpectomy and radiation 2017. 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 History of Any Multi-Drug Resistant Organisms: None Reported Past Surgical History: Breast Surgery, Cholecystectomy, Tonsillectomy Additional Past Surgical History / Comment(s): d & c, colonoscopy, LEFT breast Lumpectomy. Breast biopsies. Colonoscopy 2002. Past Anesthesia/Blood Transfusion Reactions: Postoperative Nausea & Vomiting (PONV) Additional Past Anesthesia/Blood Transfusion Reaction / Comment(s): States has a letter that states "difficult intubation". Past Psychological History: No Psychological Hx Reported Smoking Status: Never smoker Past Alcohol Use History: Rare (One per month) Past Drug Use History: None Reported Additional History: She is . She is retired. - Past Family History Mother Family Medical History: Cancer Additional Family Medical History / Comment(s): Breast cancer. Sister(s) Family Medical History: Cancer Additional Family Medical History / Comment(s): Down syndrome. Uterine cancer. Medications and Allergies Home Medications Medication Instructions Recorded Confirmed Type Aspirin 81 mg PO QAM 08/01/14 08/04/19 History Calcium Carbonate/Vitamin D3 1 each PO QAM 08/01/14 08/04/19 History [Calcium 600 + Vit D Tablet] Fenofibrate Nanocrystallized 145 mg PO HS 08/01/14 08/04/19 History [Tricor] Fish Oil/Dha/Epa [Fish Oil 1,200 600 mg PO QAM 08/01/14 08/04/19 History mg Fish Oil] Levothyroxine Sodium [Synthroid] 25 mcg PO QAM 08/01/14 08/04/19 History Metoprolol Succinate [Toprol XL] 25 mg PO BID 08/01/14 08/04/19 History Multivitamin/Iron/Folic Acid 1 each PO DAILY 08/01/14 08/04/19 History [Centrum Complete Multivit Tab] metFORMIN HCL [Glucophage] 500 mg PO BID 08/01/14 08/04/19 History Lisinopril [Zestril] 2.5 mg PO HS 11/10/17 08/04/19 History Cranberry Fruit Extract [Cranberry] 500 mg PO QAM 03/19/18 08/04/19 History Exemestane [Aromasin] 25 mg PO DAILY 04/21/19 08/04/19 History Vit C/E/Zn/Coppr/Lutein/Zeaxan 1 each PO DAILY 05/14/19 08/04/19 History [Preservision Areds 2 Softgel] Allergies Allergy/AdvReac Type Severity Reaction Status Date / Time No Known Allergies Allergy Verified 08/04/19 09:32 Exam Vital Signs Temp Pulse Resp BP Pulse Ox 08/04/19 09:22 98.3 F 62 16 163/76 100 Intake and Output 08/03/19 08/04/19 08/04/19 22:59 06:59 14:59 Other: Weight 60.781 kg Height 5 feet 2 inches, weight 134 pounds, BMI 24.5. This is a well-developed well-nourished white female who is alert and oriented times 3 in no acute distress. HEENT: Within normal limits. NECK: Supple without mass or thyromegaly. CHEST AND LUNGS: Clear to auscultation. HEART: Regular rate and rhythm. BREASTS: Are without mass or discharge. Left breast is consistent with a lumpectomy. AXILLARY EXAM: Negative for adenopathy. BACK: Negative for CVA tenderness. ABDOMEN: Soft, nontender, without palpable masses. PELVIC EXAM: External genitalia shows minimal pallor. There is also mild to moderate atrophy. There is a small abrasion at the right posterior introitus with a very small scab. This has a benign appearance. Cervix and vagina appear normal with mild to moderate atrophy. There is no unusual discharge. There is no evidence of prolapse. The uterus is midposition, nongravid size and nontender. There are no palpable adnexal masses or tenderness. RECTAL EXAM: Rectovaginal exam is negative for mass or tenderness and is negative for occult blood. EXTREMITIES: Nontender. IMPRESSION: 1. 69-year-old menopausal female with history of lichen sclerosis of the vulva which is minimally symptomatic. 2. 3 episodes during the past year of small pink blood from the genital area, most likely secondary to vulvar atrophy and lichen sclerosus. 3. History of small endometrial fluid by pelvic ultrasound on 06/19/2018. 4. Elevated blood pressure with history of chronic hypertension. 5. History of left breast cancer status post lumpectomy and radiation with no evidence of recurrence. PLAN: 1. Pap smear was performed. 2. Self breast awareness was discussed with the patient. 3. Bilateral diagnostic mammogram is due in September. The patient has the order slip for this from Dr. Brayan Ramírez. 4. Pelvic ultrasound will be scheduled to reevaluate the endometrial thickness and small endometrial fluid. The order slip was given to the patient for this. 5. Kenalog 0.1% cream twice a day when necessary for vulvar irritation. The electronic prescription will be sent to [facility] pharmacy. 6. I recommended that she check her own blood pressures at home on a regular basis and follow up with her primary care physician for blood pressure elevations. 7. She had received her flu shot recently. 8. She was advised to return in one year for her annual well woman exam.
--- NOTE | 2019-08-17 17:45 | P.PN ---
Progress Note - Text Progress Note Date: 08/17/19 OUTPATIENT FOLLOW-UP NOTE TEST(S)/RESULTS: Pap smear from 08/04/19 was negative. Pelvic ultrasound on 08/05/2019 showed a thin endometrium with an endometrial thickness of 0.3 cm. A trace amount of fluid was again seen in the endometrium and measured approximately 2 mm. METHOD OF NOTIFICATION: The patient was notified by phone. PATIENT COMMENTS: DIAGNOSIS: Negative Pap smear. Normal endometrial thickness with trace amount of fluid within the endometrium which is stable from her previous ultrasound. DISCUSSION: She was instructed to call if she has any bleeding from the vagina or if problems. She was also instructed to use the triamcinolone cream for vulvar irritation. PLAN: She was advised to return in one year for her annual well woman exam and as needed.
== END | disposition home or self-care (01) ==
LOC: WWCWWP 09:14
PROVIDERS: ATTEND Obstetrics & Gynecology
DX: Z53.9 Procedure and treatment not carried out, unspecified reason (principal)

== ENCOUNTER → 2019-08-05 | Outpatient (CLI) | payer MEDICARE ==
--- NOTE | 2019-08-05 11:30 | US ---
EXAMINATION TYPE: US pelvis complete transvag DATE OF EXAM: 08/05/2019 COMPARISON: 06/09/2018 ultrasound pelvis CLINICAL HISTORY: Small PMB N95.0/Endo Fluid by U/S R93.8. Endo fluid f/u to previous. TECHNIQUE: Transvaginal (TV) and Transabdominal (TA) . Transabdominal sonographic images of the pel vis were acquired. Transvaginal sonographic images were medically necessary to better assess the fol lowing anatomy: Uterus and ovaries. EXAM MEASUREMENTS: Uterus: 6.1 x 3.0 x 4.3 cm Endometrial Stripe: 0.3 cm 1. Uterus: Anteverted Heterogenous with calcified probable degenerative leiomyoma. 2. Endometrium: Fluid visualized measuring 2 mm. This was seen on the prior pelvic ultrasound dated 06/09/2018. This can be seen in endometrial atrophy. 3. Right Ovary: Obscured by overlying bowel gas 4. Left Ovary: Obscured by overlying bowel gas 5. Bilateral Adnexa: wnl 6. Posterior cul-de-sac: wnl IMPRESSION: 1. Persistent trace amount of fluid within the endometrium can be on the basis of endometrial atrophy . If there is any postmenopausal bleeding direct visualization and biopsy would be recommended gertrude wen 2. Obscuration of the ovaries by overlying bowel gas.
== END | disposition home or self-care (01) ==
LOC: RADUSWWP 08:22
PROVIDERS: ATTEND Obstetrics & Gynecology
DX: N95.0 Postmenopausal bleeding (principal)
CPT/HCPCS: 76830; 76856

== ENCOUNTER → 2019-09-23 | Outpatient (CLI) | payer MEDICARE ==
--- NOTE | 2019-09-23 12:05 | MM ---
Reason for exam: additional evaluation requested from prior study. Last mammogram was performed 5 months ago. History: Patient is postmenopausal, has history of breast cancer at age 67, has history of high-risk lesion on a previous biopsy at age 67, and has history of other cancer at age 44. Family history of breast cancer in mother at age 74. Benign US biopsy breast VAD LT of the left breast, May 03, 2019. Radiation therapy, April 2018. Malignant MG pre op needle loc LT of the left breast, January 27, 2018. Lumpectomy of the left breast, January 27, 2018. High risk MG stereo VAD BX LT of the left breast, November 18, 2017. Took progesterone for 2 years beginning at age 44. Taking antineoplastic beginning at age 67. Physical Findings: Nurse did not find any significant physical abnormalities on exam. MG 3D Diag Mammo W/Cad BELGICA Bilateral CC and MLO view(s) were taken. Prior study comparison: May 03, 2019, left breast MG diagnostic mammo LT wo CAD. April 15, 2019, left breast MG 3d diag mammo w/cad LT. The breast tissue is heterogeneously dense. This may lower the sensitivity of mammography. Stable benign calcifications. Stable post operative changes in the left breast. These results were verbally communicated with the patient and result sheet given to the patient on 09/23/19. ASSESSMENT: Incomplete: need additional imaging evaluation, BI-RAD 0 RECOMMENDATION: Ultrasound of the left breast.
--- NOTE | 2019-09-23 12:06 | USB ---
Reason for exam: additional evaluation requested from abnormal screening. History: Patient is postmenopausal, has history of breast cancer at age 67, has history of high-risk lesion on a previous biopsy at age 67, and has history of other cancer at age 44. Family history of breast cancer in mother at age 74. Benign US biopsy breast VAD LT of the left breast, May 03, 2019. Radiation therapy, April 2018. Malignant MG pre op needle loc LT of the left breast, January 27, 2018. Lumpectomy of the left breast, January 27, 2018. High risk MG stereo VAD BX LT of the left breast, November 18, 2017. Took progesterone for 2 years beginning at age 44. Taking antineoplastic beginning at age 67. US Breast Limited LT Left limited breast ultrasound including focal area of concern, retroareolar and axilla demonstrates a 0.3 x 0.2cm lesion too small to characterize at 11 o'clock. These results were verbally communicated with the patient and result sheet given to the patient on 09/23/19. ASSESSMENT: Benign, BI-RAD 2 RECOMMENDATION: Follow-up diagnostic mammogram of both breasts in 1 year.
== END | disposition home or self-care (01) ==
LOC: RADMAMWWP 09:28
PROVIDERS: ATTEND Surgery
DX: R92.8 Other abnormal and inconclusive findings on diagnostic imaging of breast (principal)
CPT/HCPCS: 77066; 76642; G0279; 77062

== ENCOUNTER → 2019-09-24 | Outpatient (CLI) | payer MEDICARE ==
[2019-09-24 15:55] VITALS: BP 138/76; PULSE 68; RESP 18; TEMP 97.9; BMI 23.8
--- NOTE | 2019-09-24 16:20 | P.PN ---
Subjective Progress Note Date: 09/24/19 Principal diagnosis: DCIS left breast Kenia is a 69-year-old white female status post left breast lumpectomy and sentinel node biopsy on 01/27/2018. The patient underwent radiation therapy. The patient was initially started on Femara however she had musculoskeletal side effects with severe pain in her hands and inability to use her hands. She was therefore changed to Aromasin which caused personality changes. She felt very depressed and difficulty thinking. She has subsequently stopped this and is not taking any anti-hormonal therapy. Had resolution of the symptoms. She is doing well and underwent a mammogram on 09-23-19. This was a bilateral mammogram. Stable benign calcifications were noted. stable postop changes in the left breast. It was recommended however that an ultrasound of the left breast be performed. No lesions were described in the right breast. In the left breast ultrasound the patient was noted to have a 0.3 x 0.2 cm lesion too small to characterize at 11:00 this was felt to be benign BIRADS 2. Follow-up diagnostic mammogram of the breast in 1 year was recommended. On 7118 a core biopsy was sone of the left breast. Pathology revealed scanty tissue however it was felt that the area had been adequately sampled when the area was reviewed radiographically with the radiologist and the tissues revealed fibroadipose tissue with scanty stromal site fragment and features of fibroadenoma/fiber adenomatoid hyperplasia. It was not felt that further sampling was necessary at that time as per radiology. The patient has no complaints. She does not feel any lumps or masses in her breasts for which she is concerned. No nipple discharge or skin changes of concern. We have discussed genetic testing however at the present time the patient is not interested. 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 Objective - Vital Signs Vital signs: Vital Signs Temp 97.9 F 09/24/19 15:53 Pulse 68 09/24/19 15:53 Resp 18 09/24/19 15:53 BP 138/76 09/24/19 15:53 Pulse Ox 100 09/24/19 15:53 - Exam BMI 23.8 - Constitutional General appearance: Present: average body habitus - EENT Eyes: Present: EOMI ENT: Present: hearing grossly normal - Neck Neck: Present: normal ROM - Respiratory Respiratory: bilateral: CTA - Cardiovascular Rhythm: regular Heart sounds: normal: S1, S2 - Gastrointestinal General gastrointestinal: Present: soft - Integumentary Integumentary: Present: normal turgor - Musculoskeletal Musculoskeletal: Present: gait normal - Psychiatric Psychiatric: Present: A&O x's 3, appropriate affect, intact judgment & insight - Additional findings Additional findings: breast exam: Breasts: Multiple positional exam no dominant masses or nodules of concern Right axilla: No adenopathy of concern Left breast: Smaller than left breast secondary to lumpectomy circumareolar incision is noted no dominant masses or nodules of concern Left axilla: No adenopathy of concern Breasts size 30 4C right breast. The left breast ptosis of right grade 2/3 ptosis left 1 Assessment and Plan Assessment: Impression: 1. Patient status post left breast lumpectomy radiation therapy and course of hormonal therapy for a stage IA carcinoma, January 2018 2. Asymmetry of the breast 3. Fibrocystic changes 4. Family history of breast cancer/mother 5. Personal history of lymphoma in the past Plan: 1. Patient is going to follow up in 6 months time 2. Patient will consider if she would like contralateral symmetry procedure to be done 3. Close surveillance per patient and if she notes anything of concern she will call us Time 25 minutes, > 50% planning. Cc: Dr. Darrell Enrique
== END ==
LOC: WWCWWP 15:33
PROVIDERS: ATTEND Surgery
DX: Z53.9 Procedure and treatment not carried out, unspecified reason (principal)

== ENCOUNTER → 2020-04-20 | Outpatient (CLI) | payer MEDICARE ==
[2020-04-20 09:49] VITALS: BP 164/73; PULSE 65; RESP 18; TEMP 98.7
--- NOTE | 2020-04-20 10:23 | P.PN ---
Subjective Progress Note Date: 04/20/20 Principal diagnosis: Stage IA left breast cancer January, Kenia is a 69-year-old white female status post left breast lumpectomy and sentinel node biopsy on 01/27/2018. Lumpectomy revealed a 1.3 cm grade 1 invasive ductal carcinoma in a background of DCIS. This was ER/RI positive and HER-2 negative. The patient had sentinel lymph node biopsy done and all 4 nodes were negative. The patient underwent radiation therapy. The patient was initially started on Femara however she had musculoskeletal side effects with severe pain in her hands and inability to use her hands. She was therefore changed to Aromasin which caused personality changes. She felt very depressed and difficulty thinking. She has subsequently stopped this and is not taking any anti-hormonal therapy. Had resolution of the symptoms. She is doing well and underwent a mammogram on 09-23-19. This was a bilateral mammogram. Stable benign calcifications were noted. stable postop changes in the left breast. It was recommended however that an ultrasound of the left breast be performed. No lesions were described in the right breast. In the left breast ultrasound the patient was noted to have a 0.3 x 0.2 cm lesion too small to characterize at 11:00 this was felt to be benign BIRADS 2. Follow-up diagnostic mammogram of the breast in 1 year was recommended. On 7118 a core biopsy was done of the left breast. Pathology revealed scanty tissue however it was felt that the area had been adequately sampled when the area was reviewed radiographically with the radiologist and the tissues revealed fibroadipose tissue with scanty stromal site fragment and features of fibroadenoma/fiber adenomatoid hyperplasia. It was not felt that further sampling was necessary at that time as per radiology. The patient has no complaints related to the left bresat. She is concerned about the asymmetry between the right and left breasts. The right breast is a full cup size larger than the left breast. She does not feel any lumps or masses in her breasts for which she is concerned. No nipple discharge or skin changes of concern. We does genetic testing in the past and the patient opted not to have this done. 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 Objective - Vital Signs Vital signs: Vital Signs Temp 98.7 F 04/20/20 09:46 Pulse 65 04/20/20 09:46 Resp 18 04/20/20 09:46 BP 164/73 04/20/20 09:46 Pulse Ox 97 04/20/20 09:46 Intake & Output 04/19/20 04/20/20 04/20/20 18:59 06:59 18:59 Weight 58.967 kg - Exam BMI 23.8 - Constitutional General appearance: Present: average body habitus - EENT Eyes: Present: EOMI ENT: Present: hearing grossly normal - Neck Neck: Present: normal ROM - Respiratory Respiratory: bilateral: CTA - Cardiovascular Rhythm: regular Heart sounds: normal: S1, S2 - Gastrointestinal General gastrointestinal: Present: normal bowel sounds, soft - Integumentary Integumentary: Present: normal turgor - Musculoskeletal Musculoskeletal: Present: gait normal - Psychiatric Psychiatric: Present: A&O x's 3, appropriate affect, intact judgment & insight - Additional findings Additional findings: Breast exam: BRA: 36C; right 36C; left 36B inspection: ptosis right grade 3, left breast grade 2 Palpation: right breast: Multi-positional exam no dominant masses or nodules of concern, fibrocystic changes Right axilla: No adenopathy of concern Left breast: Well-healed scar from prior surgery, no dominant masses or nodules of concern, fibrocystic changes Left axilla: No adenopathy of concern Assessment and Plan Assessment: Impression: 1. Asymmetry of breast related to partial mastectomy of left breast for stage I invasive ductal carcinoma 2. No evidence of recurrent breast cancer 2. Fibrocystic breast changes 4. Grade 3 ptosis right, grade 1 ptosis left Plan: 1. Right breast reduction mastopexy secondary to asymmetry related to partial mastectomy of the left breast for stage I invasive ductal carcinoma 2. Patient to continue on surveillance with medical oncology she has not taken any anti-hormonal medication secondary to side effects 3. Diabetes; takes metformin 4. Hypertension Risk and benefits of symmetry procedure discussed with the patient. She is unable to find close to fit well secondary to the asymmetry of the breast. It is not possible to find one probable for both breasts. This causes anxiety for the patient. She wishes to have a symmetry procedure performed. This can benefits of the procedure discussed. The patient is given the option of seeing a plastic surgeon, she has opted not to do that. She also understands the breast would not be the exact same size and there is some risk of decreased sensation to the nipple areolar complex. She understands and wishes to proceed. Cc: DR. Darrell Enrique encounter 30 minutes, > 50% of time in planning and counselling
== END | disposition home or self-care (01) ==
LOC: WWCWWP 09:35
PROVIDERS: ATTEND Surgery
DX: Z53.9 Procedure and treatment not carried out, unspecified reason (principal)

== ENCOUNTER → 2021-03-13 | Outpatient (CLI) | payer MEDICARE ==
[2021-03-13 12:02] VITALS: BP 174/67; PULSE 64; RESP 18; TEMP 98
--- NOTE | 2021-03-13 12:53 | P.HPOB ---
History of Present Illness H&P Date: 03/13/21 Chief Complaint: The patient is here for her routine gynecologic exam and ma mmogram. This is a 70-year-old with an LMP of 1993. The patient has a history of lichen sclerosus of the vulva confirmed with biopsy in 2018. She has occasional flareups of the lichen sclerosus with vulvar irritation. She was using Kenalog cream for this which was helpful, but she ran out of the cream. Within the last 2 weeks she had a flareup and did not have the cream to use and she states she noticed a small amount of bleeding which she believes was probably from the vulva but she cannot be completely certain of this. She is otherwise without gynecologic complaints. Review of Systems She has lost about 5 pounds over the past year. She denies respiratory, cardiac and G.I. problems. She denies maltreatment or problems with falling. : Occasional small amount of leakage with coughing or sneezing. Past Medical History Past Medical History: Cancer, Diabetes Mellitus, Hyperlipidemia, Hypertension, Thyroid Disorder Additional Past Medical History / Comment(s): Type 2 diabetes, hypothyroidism, hodgkins lymphoma 1993, had 7 months of chemo. Left Breast cancer, lumpectomy and radiation 2018. 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 Lichen sclerosus of the vulva. History of Any Multi-Drug Resistant Organisms: None Reported Past Surgical History: Breast Surgery, Cholecystectomy, Tonsillectomy Additional Past Surgical History / Comment(s): d & c, colonoscopy, LEFT breast Lumpectomy 2018. Breast biopsies. Colonoscopy 2002. Past Anesthesia/Blood Transfusion Reactions: Postoperative Nausea & Vomiting (PONV) Additional Past Anesthesia/Blood Transfusion Reaction / Comment(s): States has a letter that states "difficult intubation". Past Psychological History: No Psychological Hx Reported Smoking Status: Never smoker Past Alcohol Use History: Rare (1 per month) Past Drug Use History: None Reported Additional History: She is and is not sexually active. She is retired. She plans to move to [place] permanently. - Past Family History Mother Family Medical History: Cancer Additional Family Medical History / Comment(s): Breast cancer. Sister(s) Family Medical History: Cancer Additional Family Medical History / Comment(s): Down syndrome. Uterine cancer. Medications and Allergies Home Medications Medication Instructions Recorded Confirmed Type Aspirin 81 mg PO QAM 08/01/14 03/13/21 History Calcium Carbonate/Vitamin D3 1 each PO QAM 08/01/14 03/13/21 History [Calcium 600 + Vit D Tablet] Fenofibrate Nanocrystallized 145 mg PO HS 08/01/14 03/13/21 History [Tricor] Fish Oil/Dha/Epa [Fish Oil 1,200 600 mg PO QAM 08/01/14 03/13/21 History mg Fish Oil] Levothyroxine Sodium [Synthroid] 25 mcg PO QAM 08/01/14 03/13/21 History Metoprolol Succinate [Toprol XL] 25 mg PO BID 08/01/14 03/13/21 History Multivitamin/Iron/Folic Acid 1 each PO DAILY 08/01/14 03/13/21 History [Centrum Complete Multivit Tab] metFORMIN HCL [Glucophage] 500 mg PO BID 08/01/14 03/13/21 History lisinopriL [Zestril] 2.5 mg PO HS 11/10/17 03/13/21 History Cranberry Fruit Extract [Cranberry] 500 mg PO QAM 03/19/18 03/13/21 History Vit C/E/Zn/Coppr/Lutein/Zeaxan 1 each PO DAILY 05/14/19 03/13/21 History [Preservision Areds 2 Softgel] Triamcinolone 0.1% Cream [Kenalog 1 applicatio TOPICAL BID PRN #30 08/04/19 03/13/21 Rx 0.1% Cream] gram Cider Vinegar [Apple Cider Vinegar] 300 mg PO DAILY 03/13/21 03/13/21 History Allergies Allergy/AdvReac Type Severity Reaction Status Date / Time No Known Allergies Allergy Verified 04/20/20 09:46 Exam Vital Signs Temp Pulse Resp BP Pulse Ox 03/13/21 11:53 98.0 F 64 18 174/67 99 Intake and Output 03/12/21 03/13/21 03/13/21 22:59 06:59 14:59 Other: Weight 58.513 kg Height 5 feet 2-1/2 inches, weight 129 pounds, BMI 23.2. This is a well-developed well-nourished white female who is alert and oriented times 3 in no acute distress. HEENT: Within normal limits. NECK: Supple without mass or thyromegaly. CHEST AND LUNGS: Clear to auscultation. HEART: Regular rate and rhythm. BREASTS: Are without mass or discharge. AXILLARY EXAM: Negative for adenopathy. BACK: Negative for CVA tenderness. ABDOMEN: Soft, nontender, without palpable masses. PELVIC EXAM: External genitalia reveals mild to moderate atrophy with vulvar pallor bilaterally consistent with lichen sclerosus. There are some scabs on the inner left labia with slight excoriation that appears benign. Cervix and vagina appear normal with mild to moderate atrophy. There is no unusual discharge. There is no evidence of prolapse. The uterus is midposition, nongravid size and nontender. There are no palpable adnexal masses or tenderness. RECTAL EXAM: Rectovaginal exam is negative for mass or tenderness and is negative for occult blood. EXTREMITIES: Nontender. IMPRESSION: 1. 70-year-old menopausal female with lichen sclerosus of the vulva. 2. Small postmenopausal bleeding recently probably secondary to scratched irritated vulva related to the lichen sclerosus and her Kenalog cream prescription had run out. 3. History of left breast cancer status post lumpectomy and radiation therapy with no evidence of recurrence on exam today. PLAN: 1. Pap smears have been discontinued because of her age with adequate screening and no history of cervical problems. 2. Self breast awareness was discussed with the patient. 3. Mammogram will be done today. 4. Temovate 0.05% ointment twice a day when necessary for vulvar irritation. She was advised not to use this for more than 2 weeks at a time. She was advised to be reevaluated if she is needing it for more than 2 weeks at a time. The electronic prescription will be sent to [facility] pharmacy. 5. Osteoporosis prevention was discussed. I have stressed the importance of adequate calcium, vitamin D and regular exercise. Recommended amounts of calcium and vitamin D were also discussed. Her last bone density test in 2019 was normal and she will repeat this after 5 years. 6. She did receive her flu shot last fall and did complete her Covid vaccination series. 7. She was advised to return in one year for her annual well woman exam. 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
--- NOTE | 2021-03-15 08:59 | MM ---
Reason for exam: additional evaluation requested from prior study. Last mammogram was performed 1 year and 6 months ago. History: Patient is postmenopausal, has history of breast cancer at age 67, has history of high-risk lesion on a previous biopsy at age 67, and has history of other cancer at age 44. Family history of breast cancer in mother at age 74. Benign US biopsy breast VAD LT of the left breast, May 03, 2019. Radiation therapy, April 2018. Malignant MG pre op needle loc LT of the left breast, January 27, 2018. Lumpectomy of the left breast, January 27, 2018. High risk MG stereo VAD BX LT of the left breast, November 18, 2017. Took progesterone for 2 years beginning at age 44. Taking antineoplastic beginning at age 67. Physical Findings: Dr. Casiano did breast exam. MG 3D Diag Mammo W/Cad BELG[place] Bilateral CC and MLO view(s) were taken. Prior study comparison: September 23, 2019, bilateral MG 3d diag mammo w/cad BELGICA. May 03, 2019, left breast MG diagnostic mammo LT wo CAD. The breast tissue is heterogeneously dense. This may lower the sensitivity of mammography. Benign appearing bilateral calcifications. Previous mammotome biopsy in the left breast. There is chronic nodularity in the right breast. Post surgical changes on left with distortion and skin thickening. These results were verbally communicated with the patient and result sheet given to the patient on 03/13/21. ASSESSMENT: Benign, BI-RAD 2 RECOMMENDATION: Follow-up diagnostic mammogram of both breasts in 1 year.
== END ==
LOC: WWCWWP 11:07
PROVIDERS: ATTEND Obstetrics & Gynecology
DX: Z01.419 Encounter for gynecological examination (general) (routine) without abnormal findings (principal); L90.0 Lichen sclerosus et atrophicus; N95.0 Postmenopausal bleeding; E03.9 Hypothyroidism, unspecified; E11.9 Type 2 diabetes mellitus without complications; E78.5 Hyperlipidemia, unspecified; I10 Essential (primary) hypertension; Z79.84 Long term (current) use of oral hypoglycemic drugs; Z85.3 Personal history of malignant neoplasm of breast; Z92.3 Personal history of irradiation
CPT/HCPCS: 77066; G0279; 77062

== ENCOUNTER → 2021-05-15 | Outpatient (CLI) | payer MEDICARE ==
--- NOTE | 2021-05-16 07:22 | US ---
EXAMINATION TYPE: US pelvis complete transvag DATE OF EXAM: 05/15/2021 COMPARISON: US 08/05/2019 CLINICAL HISTORY: N94.89 Other specified conditions associated with. Pt states occasional spotting, F /U prev US TECHNIQUE: Transvaginal (TV) and Transabdominal (TA) . Transabdominal sonographic images of the pel vis were acquired. Transvaginal sonographic images were medically necessary to better assess the fol lowing anatomy: Endo, Right Ovary Date of LMP: age 44, pt not on HRT's EXAM MEASUREMENTS: Uterus: 6.6 x 2.9 x 4.4 cm Endometrial Stripe: 0.4 cm Left Ovary: 1.6 x 1.4 x 1.8 cm 1. Uterus: Anteverted Heterogeneous with calcified leiomyoma as visualized on previous= 1.3 x 1.2 cm 2. Endometrium: Thickness wnl, fluid within canal as visualized on prior= 1.0 x 0.3 x 0.8 cm 3. Right Ovary: Obscured by overlying bowel gas 4. Left Ovary: wnl 5. Bilateral Adnexa: Many bowel loops visualized within right adnexa 6. Posterior cul-de-sac: wnl IMPRESSION: 1. Trace fluid within the endometrial canal. 2. Calcification in the uterus most likely represents a leiomyoma.
--- NOTE | 2021-05-16 13:31 | P.PN ---
Progress Note - Text Progress Note Date: 05/16/21 OUTPATIENT FOLLOW-UP NOTE TEST(S)/RESULTS: Pelvic ultrasound done on 05/15/2021 shows normal endometrial thickness of 0.4 cm with a trace amount of fluid within the endometrial canal. There is a stable uterine fibroid measuring 1.3 cm. METHOD OF NOTIFICATION: The patient was notified by phone. PATIENT COMMENTS: The patient states she can still have times of vulvar irritation related to her lichen sclerosus. DIAGNOSIS: Probable genital blood related to the lichen sclerosus of the vulva. At this time I doubt there is any significant uterine pathology causing the small amount of blood she has noticed. DISCUSSION: I have recommended that she use the steroid ointment more frequently as needed since she has been using it sparingly in the past. She is to use it twice a day during the next 2 weeks. If she continues to have vulvar irritation or bleeding, she was instructed to make an appointment to see me before moving to [place] which she plans to do later next month. She was also instructed to establish with a welding engineer for regular exams in [place] after she moves. PLAN: As above.
== END ==
LOC: RADUSWWP 16:05
PROVIDERS: ATTEND Obstetrics & Gynecology
DX: N85.8 Other specified noninflammatory disorders of uterus (principal)
CPT/HCPCS: 76830; 76856